=== PATIENT | male | born 1935 | race Caucasian/White ===

== ENCOUNTER 2022-06-12 12:42 | Inpatient (IN) ==
[2022-06-12] MEDS ORDERED: methylPREDNISolone SOD SUC 125 MG/2 ML VIAL IV STA (15:57)
[2022-06-12] MEDS ORDERED: ALBUTEROL/IPRATROPIUM 3 ML NEB RESP TX STA (15:57)
[2022-06-12 16:05] LABS: Basophils % 0.4 % (0.0-0.8); Eosinophils # 0.2 10*3/uL (0.0-0.87); Eosinophils % 1.9 % (0.00-10.9); Hematocrit 43.3 VOL% (42.0-52.0); Hemoglobin 13.9 GM/DL (14.0-18.0); Immature Granulocytes % 0.5 %; Immature Granulocytes Absolute 0.05 #; Lymphocytes # 2.1 10*3/uL (1.4-4.0); Lymphocytes % 20.9 % (21.2-54.2); Mean Corpuscular HGB Conc 32.1 GM/DL (32-36); Mean Corpuscular Volume 89.1 FL (87-102); Mean Platelet Volume 10.9 FL (9.6-12.0); Monocytes # 0.9 10*3/uL (0.11-0.8); Monocytes % 8.9 % (1.7-12.7); Neutrophils % 67.4 % (38.7-73.9); Platelet Count 287 T/CUMM (130-400); Red Blood Count 4.86 MC/CUMM (3.8-5.5)
[2022-06-12 16:21] LABS: Albumin 3.9 G/DL (3.4-5.0); Bilirubin,Total 0.4 MG/DL (0.20-1.00); Calcium 9.1 MG/DL (8.5-10.1); Osmolality,Calculated 272.1 MOS/KG (273-304); Potassium 4.8 MMOL/L (3.5-5.1); Total Protein 7.1 G/DL (6.4-8.2)
[2022-06-12] MEDS ORDERED: cefTRIAXone 1,000 MG in SODIUM CHLORIDE 0.9% 100 ML IV STA (16:36)
[2022-06-12] MEDS ORDERED: GLUCAGON 1 MG VIAL IM PRN (17:09)
[2022-06-12] MEDS ORDERED: ACETAMINOPHEN 325 MG TABLET PO PRN (17:09)
[2022-06-12] MEDS ORDERED: NICOTINE 21 MG/24 HR PATCH TRANSDERM PRN (17:09)
[2022-06-12] MEDS ORDERED: guaiFENesin/DM ER 600-30 MG TABLET PO PRN (17:09)
[2022-06-12] MEDS ORDERED: DOCUSATE SODIUM 100 MG CAPSULE PO PRN (17:09)
[2022-06-12] MEDS ORDERED: ONDANSETRON 4 MG/2 ML VIAL IV PRN (17:09)
[2022-06-12] MEDS ORDERED: DEXTROSE 10% 250 ML BAG IV PRN (17:43)
[2022-06-12] MEDS: AZITHROMYCIN INJ 500 MG in SODIUM CHLORIDE 0.9% 250 ML IV SCH (18:45)
[2022-06-12] MEDS: ALBUTEROL/IPRATROPIUM 3 ML NEB RESP TX SCH ×2 (19:46→23:32)
[2022-06-12] MEDS: hydrALAZINE 20 MG/1 ML VIAL IV PRN (20:38)
[2022-06-12] MEDS: ENOXAPARIN 40 MG/0.4 ML SYRINGE SUBCUT SCH (21:05)
[2022-06-12] MEDS: PRIMIDONE 50 MG TABLET PO SCH (21:05)
[2022-06-12] MEDS: metFORMIN 500 MG TABLET PO SCH (21:05)
[2022-06-12] MEDS: INSULIN LISPRO 100 UNIT/ML SUBCUT SCH (21:07)
[2022-06-12] MEDS: BUDESONIDE/FORMOTEROL 160-4.5 INHALER 6 GM INH SCH (21:59)
[2022-06-12] MEDS: methylPREDNISolone SOD SUC 40 MG/1 ML VIAL IV SCH (23:12)
[2022-06-13] MEDS: methylPREDNISolone SOD SUC 40 MG/1 ML VIAL IV SCH ×4 (04:25→22:19)
[2022-06-13 05:30] LABS: Hematocrit 40.2 VOL% (42.0-52.0); Immature Granulocytes % 0.6 %; Immature Granulocytes Absolute 0.05 #; Lymphocytes # 0.8 10*3/uL (1.4-4.0); Lymphocytes % 9.5 % (21.2-54.2); Mean Corpuscular HGB Conc 32.3 GM/DL (32-36); Mean Corpuscular Volume 88.9 FL (87-102); Mean Platelet Volume 11.1 FL (9.6-12.0); Monocytes # 0.1 10*3/uL (0.11-0.8); Monocytes % 1.4 % (1.7-12.7); Neutrophils % 88.5 % (38.7-73.9); Platelet Count 262 T/CUMM (130-400); Red Blood Count 4.52 MC/CUMM (3.8-5.5); White Blood Count 8.7 T/CUMM (4-12)
[2022-06-13] MEDS: hydrALAZINE 20 MG/1 ML VIAL IV PRN (05:44)
[2022-06-13 05:59] LABS: Calcium 8.9 MG/DL (8.5-10.1); Osmolality,Calculated 275.1 MOS/KG (273-304); Potassium 4.4 MMOL/L (3.5-5.1); Risk Ratio 2.47; Thyroid Stimulating Hormone 0.46 uIU/ml (0.358-3.74); VLDL Cholesterol 15.2 MG/DL
[2022-06-13] MEDS: ALBUTEROL/IPRATROPIUM 3 ML NEB RESP TX SCH ×3 (07:25→19:36)
[2022-06-13] MEDS: NON-FORMULARY MEDICATION (Ferrous Sulfate 27 mg iron Tablet) PO SCH (08:39)
[2022-06-13] MEDS: metFORMIN 500 MG TABLET PO SCH ×2 (08:52→21:51)
[2022-06-13] MEDS: ASPIRIN EC 81 MG TABLET PO SCH (08:52)
[2022-06-13] MEDS: MULTIVITAMIN (CENTRUM) TABLET PO SCH (08:52)
[2022-06-13] MEDS: LOSARTAN 50 MG TABLET PO SCH (08:52)
[2022-06-13] MEDS: CHOLECALCIFEROL 1,000 UNIT TABLET PO SCH (08:53)
[2022-06-13] MEDS: PRIMIDONE 50 MG TABLET PO SCH ×3 (08:53→21:51)
[2022-06-13] MEDS: CYANOCOBALAMIN 500 MCG TABLET PO SCH (08:53)
[2022-06-13] MEDS: ATORVASTATIN 80 MG TABLET PO SCH (08:53)
[2022-06-13] MEDS: PANTOPRAZOLE 40 MG TABLET PO SCH (08:53)
[2022-06-13] MEDS: FUROSEMIDE 40 MG TABLET PO SCH (08:53)
[2022-06-13] MEDS: cefTRIAXone 1,000 MG in SODIUM CHLORIDE 0.9% 100 ML IV SCH (08:54)
[2022-06-13] MEDS: BUDESONIDE/FORMOTEROL 160-4.5 INHALER 6 GM INH SCH ×2 (08:54→21:51)
[2022-06-13] MEDS: INSULIN LISPRO 100 UNIT/ML SUBCUT SCH ×4 (08:54→21:50)
[2022-06-13] MEDS ORDERED: GLUCAGON 1 MG VIAL IM PRN (16:43)
[2022-06-13] MEDS ORDERED: DEXTROSE 50% 25 GM/50 ML VIAL IV PRN (16:43)
[2022-06-13] MEDS: AZITHROMYCIN INJ 500 MG in SODIUM CHLORIDE 0.9% 250 ML IV SCH (18:39)
[2022-06-13] MEDS: ENOXAPARIN 40 MG/0.4 ML SYRINGE SUBCUT SCH (21:50)
[2022-06-14] MEDS: ALBUTEROL/IPRATROPIUM 3 ML NEB RESP TX SCH ×4 (02:01→19:46)
[2022-06-14 05:30] LABS: Basophils % 0.1 % (0.0-0.8); Hematocrit 38.9 VOL% (42.0-52.0); Hemoglobin 12.4 GM/DL (14.0-18.0); Immature Granulocytes % 0.6 %; Immature Granulocytes Absolute 0.11 #; Lymphocytes # 0.8 10*3/uL (1.4-4.0); Lymphocytes % 4.8 % (21.2-54.2); Mean Corpuscular HGB Conc 31.9 GM/DL (32-36); Mean Corpuscular Volume 88.8 FL (87-102); Mean Platelet Volume 11.3 FL (9.6-12.0); Monocytes # 0.7 10*3/uL (0.11-0.8); Monocytes % 3.8 % (1.7-12.7); Neutrophils % 90.7 % (38.7-73.9); Platelet Count 280 T/CUMM (130-400); Red Blood Count 4.38 MC/CUMM (3.8-5.5); Red Cell Distribution Width 14.4 % (9.3-17.3); White Blood Count 17.2 T/CUMM (4-12)
[2022-06-14 05:45] LABS: PT Patient Result 11.2 SECS (10.1-12.1)
[2022-06-14 06:01] LABS: Band Neutrophils 1 % (0-10); Lymphocytes 5 % (20-55); Platelet Estimate Adequate; Total Cells Counted 100
[2022-06-14] MEDS: hydrALAZINE 20 MG/1 ML VIAL IV PRN (06:02)
[2022-06-14 06:03] LABS: Calcium 9.1 MG/DL (8.5-10.1); Potassium 4.1 MMOL/L (3.5-5.1)
[2022-06-14] MEDS: methylPREDNISolone SOD SUC 40 MG/1 ML VIAL IV SCH ×2 (06:04→18:11)
[2022-06-14] MEDS: cefTRIAXone 1,000 MG in SODIUM CHLORIDE 0.9% 100 ML IV SCH (09:39)
[2022-06-14] MEDS: metFORMIN 500 MG TABLET PO SCH ×2 (09:40→20:12)
[2022-06-14] MEDS: PANTOPRAZOLE 40 MG TABLET PO SCH (09:40)
[2022-06-14] MEDS: CYANOCOBALAMIN 500 MCG TABLET PO SCH (09:40)
[2022-06-14] MEDS: LOSARTAN 50 MG TABLET PO SCH (09:40)
[2022-06-14] MEDS: ATORVASTATIN 80 MG TABLET PO SCH (09:41)
[2022-06-14] MEDS: CHOLECALCIFEROL 1,000 UNIT TABLET PO SCH (09:41)
[2022-06-14] MEDS: MULTIVITAMIN (CENTRUM) TABLET PO SCH (09:41)
[2022-06-14] MEDS: PRIMIDONE 50 MG TABLET PO SCH ×3 (09:41→20:12)
[2022-06-14] MEDS: FUROSEMIDE 40 MG TABLET PO SCH (09:42)
[2022-06-14] MEDS: INSULIN LISPRO 100 UNIT/ML SUBCUT SCH ×4 (09:42→20:50)
[2022-06-14] MEDS: BUDESONIDE/FORMOTEROL 160-4.5 INHALER 6 GM INH SCH ×2 (09:43→20:18)
[2022-06-14] MEDS: NON-FORMULARY MEDICATION (Ferrous Sulfate 27 mg iron Tablet) PO SCH (09:54)
[2022-06-14] MEDS: AZITHROMYCIN INJ 500 MG in SODIUM CHLORIDE 0.9% 250 ML IV SCH (18:11)
[2022-06-14] MEDS: ENOXAPARIN 40 MG/0.4 ML SYRINGE SUBCUT SCH (20:13)
[2022-06-14] MEDS: ZALEPLON 5 MG CAPSULE PO PRN (22:25)
[2022-06-15] MEDS: ALBUTEROL/IPRATROPIUM 3 ML NEB RESP TX SCH ×4 (00:55→19:26)
[2022-06-15 05:30] LABS: Basophils % 0.1 % (0.0-0.8); Hematocrit 39.3 VOL% (42.0-52.0); Hemoglobin 12.6 GM/DL (14.0-18.0); Immature Granulocytes % 0.5 %; Immature Granulocytes Absolute 0.08 #; Lymphocytes # 1.3 10*3/uL (1.4-4.0); Mean Corpuscular HGB Conc 32.1 GM/DL (32-36); Mean Corpuscular Volume 89.3 FL (87-102); Mean Platelet Volume 11.1 FL (9.6-12.0); Monocytes # 0.9 10*3/uL (0.11-0.8); Monocytes % 6.3 % (1.7-12.7); Neutrophils % 84.1 % (38.7-73.9); Platelet Count 256 T/CUMM (130-400); Red Cell Distribution Width 14.6 % (9.3-17.3); White Blood Count 14.8 T/CUMM (4-12)
[2022-06-15 05:51] LABS: Calcium 8.8 MG/DL (8.5-10.1); Osmolality,Calculated 276.8 MOS/KG (273-304); Potassium 4.4 MMOL/L (3.5-5.1)
[2022-06-15] MEDS: methylPREDNISolone SOD SUC 40 MG/1 ML VIAL IV SCH ×2 (05:52→18:59)
[2022-06-15] MEDS: INSULIN LISPRO 100 UNIT/ML SUBCUT SCH ×4 (08:27→21:12)
[2022-06-15] MEDS: cefTRIAXone 1,000 MG in SODIUM CHLORIDE 0.9% 100 ML IV SCH (08:55)
[2022-06-15] MEDS: BUDESONIDE/FORMOTEROL 160-4.5 INHALER 6 GM INH SCH ×2 (08:55→21:12)
[2022-06-15] MEDS: MULTIVITAMIN (CENTRUM) TABLET PO SCH (08:56)
[2022-06-15] MEDS: PRIMIDONE 50 MG TABLET PO SCH ×3 (08:57→21:12)
[2022-06-15] MEDS: FUROSEMIDE 40 MG TABLET PO SCH (08:57)
[2022-06-15] MEDS: metFORMIN 500 MG TABLET PO SCH (08:57)
[2022-06-15] MEDS: PANTOPRAZOLE 40 MG TABLET PO SCH (08:57)
[2022-06-15] MEDS: ATORVASTATIN 80 MG TABLET PO SCH (08:57)
[2022-06-15] MEDS: LOSARTAN 50 MG TABLET PO SCH (08:57)
[2022-06-15] MEDS: CYANOCOBALAMIN 500 MCG TABLET PO SCH (08:58)
[2022-06-15] MEDS: CHOLECALCIFEROL 1,000 UNIT TABLET PO SCH (08:58)
[2022-06-15] MEDS: NON-FORMULARY MEDICATION (Ferrous Sulfate 27 mg iron Tablet) PO SCH (09:00)
[2022-06-15] MEDS ORDERED: DIAZEPAM 5 MG TABLET PO ONE (09:31)
[2022-06-15] MEDS: AZITHROMYCIN INJ 500 MG in SODIUM CHLORIDE 0.9% 250 ML IV SCH (18:59)
[2022-06-15] MEDS: ENOXAPARIN 40 MG/0.4 ML SYRINGE SUBCUT SCH (21:12)
[2022-06-16] MEDS: ALBUTEROL/IPRATROPIUM 3 ML NEB RESP TX SCH ×4 (00:33→19:40)
[2022-06-16 04:59] LABS: Basophils % 0.1 % (0.0-0.8); Eosinophils % 0.1 % (0.00-10.9); Hematocrit 40.5 VOL% (42.0-52.0); Hemoglobin 12.8 GM/DL (14.0-18.0); Immature Granulocytes % 0.5 %; Immature Granulocytes Absolute 0.07 #; Lymphocytes # 1.3 10*3/uL (1.4-4.0); Lymphocytes % 9.8 % (21.2-54.2); Mean Corpuscular HGB Conc 31.6 GM/DL (32-36); Mean Corpuscular Volume 90.4 FL (87-102); Mean Platelet Volume 11.2 FL (9.6-12.0); Monocytes # 1.1 10*3/uL (0.11-0.8); Monocytes % 8.2 % (1.7-12.7); Neutrophils % 81.3 % (38.7-73.9); Platelet Count 243 T/CUMM (130-400); Red Blood Count 4.48 MC/CUMM (3.8-5.5); Red Cell Distribution Width 14.5 % (9.3-17.3); White Blood Count 13.7 T/CUMM (4-12)
[2022-06-16 05:27] LABS: Calcium 8.8 MG/DL (8.5-10.1); Osmolality,Calculated 271.1 MOS/KG (273-304); Potassium 4.8 MMOL/L (3.5-5.1)
[2022-06-16] MEDS: methylPREDNISolone SOD SUC 40 MG/1 ML VIAL IV SCH ×2 (06:29→17:47)
[2022-06-16] MEDS: INSULIN LISPRO 100 UNIT/ML SUBCUT SCH ×4 (08:16→21:17)
[2022-06-16] MEDS: MULTIVITAMIN (CENTRUM) TABLET PO SCH (09:48)
[2022-06-16] MEDS: CYANOCOBALAMIN 500 MCG TABLET PO SCH (09:48)
[2022-06-16] MEDS: CHOLECALCIFEROL 1,000 UNIT TABLET PO SCH (09:48)
[2022-06-16] MEDS: LOSARTAN 50 MG TABLET PO SCH (09:48)
[2022-06-16] MEDS: ATORVASTATIN 80 MG TABLET PO SCH (09:48)
[2022-06-16] MEDS: FUROSEMIDE 40 MG TABLET PO SCH (09:49)
[2022-06-16] MEDS: PANTOPRAZOLE 40 MG TABLET PO SCH (09:49)
[2022-06-16] MEDS: cefTRIAXone 1,000 MG in SODIUM CHLORIDE 0.9% 100 ML IV SCH (09:49)
[2022-06-16] MEDS: PRIMIDONE 50 MG TABLET PO SCH ×3 (09:49→21:17)
[2022-06-16] MEDS: NON-FORMULARY MEDICATION (Ferrous Sulfate 27 mg iron Tablet) PO SCH (09:50)
[2022-06-16] MEDS: ASPIRIN EC 81 MG TABLET PO SCH (09:50)
[2022-06-16] MEDS: BUDESONIDE/FORMOTEROL 160-4.5 INHALER 6 GM INH SCH ×2 (09:51→21:17)
[2022-06-16] MEDS: AZITHROMYCIN INJ 500 MG in SODIUM CHLORIDE 0.9% 250 ML IV SCH (17:46)
[2022-06-16] MEDS ORDERED: ALUMINUM/MAGNES/SIMETH MAX STR 30 ML UDCUP PO PRN (20:06)
[2022-06-16 20:11] LABS: Lymphocytes,Pleural Fluid 65 %; Monocytes,Pleural Fluid 18 %; Neutrophils,Pleural Fluid 17 %
[2022-06-16 20:12] LABS: RBC,Pleural Fluid 774 T/CUMM
[2022-06-16 20:22] LABS: Glucose,Pleural Fluid 99 MG/DL; Total Protein,Body Fluid 4.3 G/DL
[2022-06-16] MEDS: ENOXAPARIN 40 MG/0.4 ML SYRINGE SUBCUT SCH (21:17)
[2022-06-16] MEDS: ZALEPLON 5 MG CAPSULE PO PRN (22:25)
[2022-06-17] MEDS: ALBUTEROL/IPRATROPIUM 3 ML NEB RESP TX SCH ×4 (00:18→19:20)
[2022-06-17 06:01] LABS: Basophils % 0.1 % (0.0-0.8); Eosinophils # 0.3 10*3/uL (0.0-0.87); Eosinophils % 2.1 % (0.00-10.9); Hematocrit 41.1 VOL% (42.0-52.0); Hemoglobin 13.2 GM/DL (14.0-18.0); Immature Granulocytes % 0.6 %; Immature Granulocytes Absolute 0.07 #; Lymphocytes # 1.7 10*3/uL (1.4-4.0); Lymphocytes % 13.8 % (21.2-54.2); Mean Corpuscular HGB Conc 32.1 GM/DL (32-36); Mean Corpuscular Volume 89.5 FL (87-102); Mean Platelet Volume 11.2 FL (9.6-12.0); Monocytes # 1.2 10*3/uL (0.11-0.8); Monocytes % 10.2 % (1.7-12.7); Neutrophils % 73.2 % (38.7-73.9); Platelet Count 225 T/CUMM (130-400); Red Blood Count 4.59 MC/CUMM (3.8-5.5); Red Cell Distribution Width 14.2 % (9.3-17.3); White Blood Count 12.2 T/CUMM (4-12)
[2022-06-17] MEDS: methylPREDNISolone SOD SUC 40 MG/1 ML VIAL IV SCH (06:16)
[2022-06-17 06:25] LABS: Calcium 8.7 MG/DL (8.5-10.1); Osmolality,Calculated 274.8 MOS/KG (273-304); Potassium 3.8 MMOL/L (3.5-5.1)
[2022-06-17] MEDS: INSULIN LISPRO 100 UNIT/ML SUBCUT SCH ×4 (08:39→20:25)
[2022-06-17] MEDS: BUDESONIDE/FORMOTEROL 160-4.5 INHALER 6 GM INH SCH ×2 (08:42→21:09)
[2022-06-17] MEDS: CHOLECALCIFEROL 1,000 UNIT TABLET PO SCH (08:43)
[2022-06-17] MEDS: FUROSEMIDE 40 MG TABLET PO SCH (08:43)
[2022-06-17] MEDS: PRIMIDONE 50 MG TABLET PO SCH ×3 (08:43→21:09)
[2022-06-17] MEDS: ASPIRIN EC 81 MG TABLET PO SCH (08:43)
[2022-06-17] MEDS: LOSARTAN 50 MG TABLET PO SCH (08:43)
[2022-06-17] MEDS: CYANOCOBALAMIN 500 MCG TABLET PO SCH (08:44)
[2022-06-17] MEDS: MULTIVITAMIN (CENTRUM) TABLET PO SCH (08:44)
[2022-06-17] MEDS: cefTRIAXone 1,000 MG in SODIUM CHLORIDE 0.9% 100 ML IV SCH (08:44)
[2022-06-17] MEDS: PANTOPRAZOLE 40 MG TABLET PO SCH (08:44)
[2022-06-17] MEDS: ATORVASTATIN 80 MG TABLET PO SCH (08:44)
[2022-06-17] MEDS: NON-FORMULARY MEDICATION (Ferrous Sulfate 27 mg iron Tablet) PO SCH (08:51)
[2022-06-17] MEDS: metFORMIN 500 MG TABLET PO SCH ×2 (10:11→21:08)
[2022-06-17] MEDS: AZITHROMYCIN INJ 500 MG in SODIUM CHLORIDE 0.9% 250 ML IV SCH (17:25)
[2022-06-17] MEDS: ZALEPLON 5 MG CAPSULE PO PRN (21:08)
[2022-06-17] MEDS: ENOXAPARIN 40 MG/0.4 ML SYRINGE SUBCUT SCH (21:09)
[2022-06-18] MEDS: ALBUTEROL/IPRATROPIUM 3 ML NEB RESP TX SCH ×4 (00:15→19:24)
[2022-06-18 05:00] LABS: Basophils % 0.1 % (0.0-0.8); Eosinophils # 0.5 10*3/uL (0.0-0.87); Hematocrit 39.8 VOL% (42.0-52.0); Hemoglobin 12.8 GM/DL (14.0-18.0); Immature Granulocytes Absolute 0.11 #; Lymphocytes # 1.8 10*3/uL (1.4-4.0); Lymphocytes % 16.6 % (21.2-54.2); Mean Corpuscular HGB Conc 32.2 GM/DL (32-36); Mean Corpuscular Volume 89.4 FL (87-102); Mean Platelet Volume 11.4 FL (9.6-12.0); Monocytes % 9.2 % (1.7-12.7); Neutrophils % 68.1 % (38.7-73.9); Platelet Count 222 T/CUMM (130-400); Red Blood Count 4.45 MC/CUMM (3.8-5.5); Red Cell Distribution Width 13.9 % (9.3-17.3); White Blood Count 10.7 T/CUMM (4-12)
[2022-06-18 05:30] LABS: Calcium 8.7 MG/DL (8.5-10.1); Osmolality,Calculated 278.5 MOS/KG (273-304); Potassium 3.8 MMOL/L (3.5-5.1)
[2022-06-18] MEDS: INSULIN LISPRO 100 UNIT/ML SUBCUT SCH ×4 (09:26→20:50)
[2022-06-18] MEDS: cefTRIAXone 1,000 MG in SODIUM CHLORIDE 0.9% 100 ML IV SCH (09:26)
[2022-06-18] MEDS: CYANOCOBALAMIN 500 MCG TABLET PO SCH (09:27)
[2022-06-18] MEDS: MULTIVITAMIN (CENTRUM) TABLET PO SCH (09:27)
[2022-06-18] MEDS: PRIMIDONE 50 MG TABLET PO SCH ×3 (09:27→20:50)
[2022-06-18] MEDS: FUROSEMIDE 40 MG TABLET PO SCH (09:27)
[2022-06-18] MEDS: ASPIRIN EC 81 MG TABLET PO SCH (09:27)
[2022-06-18] MEDS: LOSARTAN 50 MG TABLET PO SCH (09:27)
[2022-06-18] MEDS: ATORVASTATIN 80 MG TABLET PO SCH (09:27)
[2022-06-18] MEDS: metFORMIN 500 MG TABLET PO SCH ×2 (09:28→20:29)
[2022-06-18] MEDS: PANTOPRAZOLE 40 MG TABLET PO SCH (09:28)
[2022-06-18] MEDS: CHOLECALCIFEROL 1,000 UNIT TABLET PO SCH (09:28)
[2022-06-18] MEDS: NON-FORMULARY MEDICATION (Ferrous Sulfate 27 mg iron Tablet) PO SCH (09:30)
[2022-06-18] MEDS: BUDESONIDE/FORMOTEROL 160-4.5 INHALER 6 GM INH SCH ×2 (09:34→20:50)
[2022-06-18 11:41] LABS: Specimen Source NASAL
[2022-06-18] MEDS: AZITHROMYCIN INJ 500 MG in SODIUM CHLORIDE 0.9% 250 ML IV SCH (17:48)
[2022-06-18] MEDS: ZALEPLON 5 MG CAPSULE PO PRN (20:49)
[2022-06-18] MEDS: ENOXAPARIN 40 MG/0.4 ML SYRINGE SUBCUT SCH (20:50)
[2022-06-19] MEDS: ALBUTEROL/IPRATROPIUM 3 ML NEB RESP TX SCH ×2 (00:10→07:28)
[2022-06-19] MEDS: INSULIN LISPRO 100 UNIT/ML SUBCUT SCH ×2 (07:37→11:30)
[2022-06-19] MEDS: ASPIRIN EC 81 MG TABLET PO SCH (08:51)
[2022-06-19] MEDS: MULTIVITAMIN (CENTRUM) TABLET PO SCH (08:51)
[2022-06-19] MEDS: ATORVASTATIN 80 MG TABLET PO SCH (08:51)
[2022-06-19] MEDS: PANTOPRAZOLE 40 MG TABLET PO SCH (08:52)
[2022-06-19] MEDS: CHOLECALCIFEROL 1,000 UNIT TABLET PO SCH (08:52)
[2022-06-19] MEDS: PRIMIDONE 50 MG TABLET PO SCH (08:52)
[2022-06-19] MEDS: LOSARTAN 50 MG TABLET PO SCH (08:52)
[2022-06-19] MEDS: CYANOCOBALAMIN 500 MCG TABLET PO SCH (08:52)
[2022-06-19] MEDS: FUROSEMIDE 40 MG TABLET PO SCH (08:52)
[2022-06-19] MEDS: cefTRIAXone 1,000 MG in SODIUM CHLORIDE 0.9% 100 ML IV SCH (08:53)
[2022-06-19] MEDS: BUDESONIDE/FORMOTEROL 160-4.5 INHALER 6 GM INH SCH (08:53)
[2022-06-19] MEDS: NON-FORMULARY MEDICATION (Ferrous Sulfate 27 mg iron Tablet) PO SCH (08:53)
[2022-06-19] MEDS: metFORMIN 500 MG TABLET PO SCH (08:54)
[2022-06-19 12:01] VITALS: BP 127/53
== END 2022-06-19 14:20 | disposition home or self-care (01) | DRG 180 ==
LOC: N.ED 12:42 → N.EDINP 17:09 → SUATTDRO 17:09 → N.TELEN 20:05
PROVIDERS: ADMIT Internal Medicine; ATTEND Family Medicine
PROC: IRGDHTC (2022-06-15 08:05)

== ENCOUNTER 2022-07-01 21:38 | Inpatient (IN) ==
[2022-07-01] MEDS ORDERED: FUROSEMIDE 40 MG/4 ML VIAL IV STA (22:05)
[2022-07-01 22:28] LABS: Basophils # 0.1 10*3/uL (0.0-0.2); Basophils % 0.4 % (0.0-0.8); Eosinophils # 0.5 10*3/uL (0.0-0.87); Eosinophils % 3.9 % (0.00-10.9); Hematocrit 38.2 VOL% (42.0-52.0); Hemoglobin 12.2 GM/DL (14.0-18.0); Immature Granulocytes % 0.5 %; Immature Granulocytes Absolute 0.06 #; Lymphocytes # 1.7 10*3/uL (1.4-4.0); Lymphocytes % 14.9 % (21.2-54.2); Mean Corpuscular HGB Conc 31.9 GM/DL (32-36); Mean Platelet Volume 10.6 FL (9.6-12.0); Monocytes # 0.9 10*3/uL (0.11-0.8); Monocytes % 7.6 % (1.7-12.7); Neutrophils % 72.7 % (38.7-73.9); Platelet Count 314 T/CUMM (130-400); Red Blood Count 4.29 MC/CUMM (3.8-5.5); Red Cell Distribution Width 14.3 % (9.3-17.3); White Blood Count 11.4 T/CUMM (4-12)
[2022-07-01 22:57] LABS: Alanine Aminotransferase 33 U/L (16-61); Albumin 3.4 G/DL (3.4-5.0); Alkaline Phosphatase 119 U/L (45-117); Aspartate Amino Transferase 20 U/L (0-37); Bilirubin,Total < 0.39 MG/DL (0.20-1.00); Blood Urea Nitrogen 13 MG/DL (7-18); Calcium 8.6 MG/DL (8.5-10.1); Carbon Dioxide 26 MMOL/L (21-32); Chloride 107 MMOL/L (98-107); Glucose 129 MG/DL (74-106); Osmolality,Calculated 278.5 MOS/KG (273-304); Potassium 4.6 MMOL/L (3.5-5.1); Sodium 139 MMOL/L (136-145); Total Protein 6.3 G/DL (6.4-8.2)
[2022-07-01] MEDS ORDERED: PIPERACILLIN/TAZOBACTAM 3,375 MG in SODIUM CHLORIDE 0.9% 100 ML IV STA (23:45)
[2022-07-01] MEDS ORDERED: DOCUSATE SODIUM 100 MG CAPSULE PO PRN (23:51)
[2022-07-01] MEDS ORDERED: MORPHINE 2 MG/1 ML SYRINGE IV PRN (23:51)
[2022-07-01] MEDS ORDERED: hydrALAZINE 20 MG/1 ML VIAL IV PRN (23:51)
[2022-07-01] MEDS ORDERED: NICOTINE 21 MG/24 HR PATCH TRANSDERM PRN (23:51)
[2022-07-01] MEDS ORDERED: guaiFENesin/DM ER 600-30 MG TABLET PO PRN (23:51)
[2022-07-01] MEDS ORDERED: ONDANSETRON 4 MG/2 ML VIAL IV PRN (23:51)
[2022-07-01] MEDS ORDERED: diphenhydrAMINE CAP 25 MG CAPSULE PO PRN (23:51)
[2022-07-01] MEDS ORDERED: ACETAMINOPHEN 325 MG TABLET PO PRN (23:51)
[2022-07-02 06:15] LABS: Basophils # 0.1 10*3/uL (0.0-0.2); Basophils % 0.6 % (0.0-0.8); Eosinophils # 0.3 10*3/uL (0.0-0.87); Eosinophils % 3.6 % (0.00-10.9); Hematocrit 37.5 VOL% (42.0-52.0); Hemoglobin 11.9 GM/DL (14.0-18.0); Immature Granulocytes % 0.4 %; Immature Granulocytes Absolute 0.04 #; Lymphocytes # 1.4 10*3/uL (1.4-4.0); Lymphocytes % 14.9 % (21.2-54.2); Mean Corpuscular HGB Conc 31.7 GM/DL (32-36); Mean Corpuscular Volume 90.1 FL (87-102); Mean Platelet Volume 10.6 FL (9.6-12.0); Monocytes # 0.8 10*3/uL (0.11-0.8); Monocytes % 8.8 % (1.7-12.7); Neutrophils % 71.7 % (38.7-73.9); Platelet Count 278 T/CUMM (130-400); Red Blood Count 4.16 MC/CUMM (3.8-5.5); Red Cell Distribution Width 14.3 % (9.3-17.3); White Blood Count 9.4 T/CUMM (4-12)
[2022-07-02 06:33] LABS: Calcium 8.9 MG/DL (8.5-10.1); Osmolality,Calculated 279.4 MOS/KG (273-304); Potassium 4.9 MMOL/L (3.5-5.1)
[2022-07-02] MEDS: ALBUTEROL/IPRATROPIUM 3 ML NEB RESP TX SCH ×3 (07:13→18:56)
[2022-07-02] MEDS: INSULIN LISPRO 100 UNIT/ML SUBCUT SCH ×4 (08:13→21:20)
[2022-07-02] MEDS: PANTOPRAZOLE 40 MG TABLET PO SCH (09:03)
[2022-07-02] MEDS: PIPERACILLIN/TAZOBACTAM 3,375 MG in SODIUM CHLORIDE 0.9% 100 ML IV SCH ×3 (09:03→23:35)
[2022-07-02] MEDS ORDERED: GLUCAGON 1 MG VIAL IM PRN (11:11)
[2022-07-02] MEDS ORDERED: DEXTROSE 10% 250 ML BAG IV PRN (11:11)
[2022-07-02] MEDS ORDERED: IPRATROPIUM 500 MCG/2.5 ML NEB RESP TX SCH (13:00)
[2022-07-02] MEDS: ZALEPLON 5 MG CAPSULE PO PRN (21:19)
[2022-07-02] MEDS: BUDESONIDE/FORMOTEROL 160-4.5 INHALER 6 GM INH SCH (21:20)
[2022-07-03] MEDS: ALBUTEROL/IPRATROPIUM 3 ML NEB RESP TX SCH ×5 (00:23→23:04)
[2022-07-03] MEDS: PANTOPRAZOLE 40 MG TABLET PO SCH (08:51)
[2022-07-03] MEDS: ATORVASTATIN 80 MG TABLET PO SCH (08:51)
[2022-07-03] MEDS: PIPERACILLIN/TAZOBACTAM 3,375 MG in SODIUM CHLORIDE 0.9% 100 ML IV SCH ×2 (08:51→15:26)
[2022-07-03] MEDS: CHOLECALCIFEROL 1,000 UNIT TABLET PO SCH (08:51)
[2022-07-03] MEDS: LOSARTAN 50 MG TABLET PO SCH (08:51)
[2022-07-03] MEDS: INSULIN LISPRO 100 UNIT/ML SUBCUT SCH ×4 (09:13→20:04)
[2022-07-03] MEDS: BUDESONIDE/FORMOTEROL 160-4.5 INHALER 6 GM INH SCH ×2 (10:02→20:11)
[2022-07-03] MEDS: ZALEPLON 5 MG CAPSULE PO PRN (20:09)
[2022-07-04] MEDS: PIPERACILLIN/TAZOBACTAM 3,375 MG in SODIUM CHLORIDE 0.9% 100 ML IV SCH ×3 (00:33→15:31)
[2022-07-04] MEDS: ALBUTEROL/IPRATROPIUM 3 ML NEB RESP TX SCH ×4 (01:01→20:12)
[2022-07-04 05:17] LABS: Basophils # 0.1 10*3/uL (0.0-0.2); Basophils % 0.7 % (0.0-0.8); Eosinophils # 0.4 10*3/uL (0.0-0.87); Hematocrit 34.7 VOL% (42.0-52.0); Hemoglobin 10.8 GM/DL (14.0-18.0); Immature Granulocytes % 0.4 %; Immature Granulocytes Absolute 0.03 #; Lymphocytes % 14.2 % (21.2-54.2); Mean Corpuscular HGB Conc 31.1 GM/DL (32-36); Mean Corpuscular Volume 90.1 FL (87-102); Mean Platelet Volume 10.6 FL (9.6-12.0); Monocytes # 0.7 10*3/uL (0.11-0.8); Monocytes % 9.5 % (1.7-12.7); Neutrophils % 70.2 % (38.7-73.9); Platelet Count 254 T/CUMM (130-400); Red Blood Count 3.85 MC/CUMM (3.8-5.5); Red Cell Distribution Width 14.5 % (9.3-17.3); White Blood Count 7.3 T/CUMM (4-12)
[2022-07-04 05:27] LABS: PT Patient Result 10.9 SECS (10.1-12.1)
[2022-07-04 05:35] LABS: Calcium 8.4 MG/DL (8.5-10.1); Osmolality,Calculated 276.5 MOS/KG (273-304); Potassium 3.7 MMOL/L (3.5-5.1)
[2022-07-04] MEDS: INSULIN LISPRO 100 UNIT/ML SUBCUT SCH ×4 (08:05→21:27)
[2022-07-04] MEDS: LOSARTAN 50 MG TABLET PO SCH (08:10)
[2022-07-04] MEDS: ATORVASTATIN 80 MG TABLET PO SCH (08:10)
[2022-07-04] MEDS: CHOLECALCIFEROL 1,000 UNIT TABLET PO SCH (08:10)
[2022-07-04] MEDS: PANTOPRAZOLE 40 MG TABLET PO SCH (08:10)
[2022-07-04] MEDS: BUDESONIDE/FORMOTEROL 160-4.5 INHALER 6 GM INH SCH ×2 (09:15→23:16)
[2022-07-05] MEDS: ALBUTEROL/IPRATROPIUM 3 ML NEB RESP TX SCH ×5 (00:21→22:10)
[2022-07-05] MEDS: PIPERACILLIN/TAZOBACTAM 3,375 MG in SODIUM CHLORIDE 0.9% 100 ML IV SCH ×3 (00:42→17:26)
[2022-07-05 06:15] LABS: Basophils # 0.1 10*3/uL (0.0-0.2); Basophils % 0.6 % (0.0-0.8); Eosinophils # 0.4 10*3/uL (0.0-0.87); Eosinophils % 5.5 % (0.00-10.9); Hematocrit 36.3 VOL% (42.0-52.0); Hemoglobin 11.2 GM/DL (14.0-18.0); Immature Granulocytes % 0.5 %; Immature Granulocytes Absolute 0.04 #; Mean Corpuscular HGB Conc 30.9 GM/DL (32-36); Mean Corpuscular Volume 90.5 FL (87-102); Mean Platelet Volume 10.8 FL (9.6-12.0); Monocytes # 0.8 10*3/uL (0.11-0.8); Monocytes % 9.8 % (1.7-12.7); Neutrophils % 71.6 % (38.7-73.9); Platelet Count 266 T/CUMM (130-400); Red Blood Count 4.01 MC/CUMM (3.8-5.5); Red Cell Distribution Width 14.5 % (9.3-17.3)
[2022-07-05 06:36] LABS: Albumin 2.8 G/DL (3.4-5.0); Bilirubin,Total 0.5 MG/DL (0.20-1.00); Calcium 8.6 MG/DL (8.5-10.1); Osmolality,Calculated 278.4 MOS/KG (273-304); Potassium 4.1 MMOL/L (3.5-5.1); Total Protein 6.1 G/DL (6.4-8.2)
[2022-07-05] MEDS ORDERED: DOXYCYCLINE HYCLATE INJ 200 MG, LIDOCAINE 1% INJ 20 ML in STERILE WATER INJ 30 ML INTRAPLEUR ONE (09:00)
[2022-07-05] MEDS: PANTOPRAZOLE 40 MG TABLET PO SCH (09:03)
[2022-07-05] MEDS: LOSARTAN 50 MG TABLET PO SCH (09:03)
[2022-07-05] MEDS: CHOLECALCIFEROL 1,000 UNIT TABLET PO SCH (09:03)
[2022-07-05] MEDS: ATORVASTATIN 80 MG TABLET PO SCH (09:03)
[2022-07-05] MEDS: INSULIN LISPRO 100 UNIT/ML SUBCUT SCH ×4 (09:04→20:35)
[2022-07-05] MEDS: BUDESONIDE/FORMOTEROL 160-4.5 INHALER 6 GM INH SCH ×2 (09:12→21:31)
[2022-07-05] MEDS: ENOXAPARIN 40 MG/0.4 ML SYRINGE SUBCUT SCH (17:26)
[2022-07-05] MEDS: ZALEPLON 5 MG CAPSULE PO PRN (23:29)
[2022-07-06] MEDS: PIPERACILLIN/TAZOBACTAM 3,375 MG in SODIUM CHLORIDE 0.9% 100 ML IV SCH ×4 (00:43→23:28)
[2022-07-06 05:04] LABS: Basophils # 0.1 10*3/uL (0.0-0.2); Basophils % 0.8 % (0.0-0.8); Eosinophils # 0.6 10*3/uL (0.0-0.87); Eosinophils % 7.9 % (0.00-10.9); Hematocrit 36.1 VOL% (42.0-52.0); Hemoglobin 11.1 GM/DL (14.0-18.0); Immature Granulocytes % 0.5 %; Immature Granulocytes Absolute 0.04 #; Lymphocytes # 1.2 10*3/uL (1.4-4.0); Lymphocytes % 15.9 % (21.2-54.2); Mean Corpuscular HGB Conc 30.7 GM/DL (32-36); Mean Corpuscular Volume 91.6 FL (87-102); Mean Platelet Volume 10.4 FL (9.6-12.0); Monocytes # 0.8 10*3/uL (0.11-0.8); Monocytes % 10.6 % (1.7-12.7); Neutrophils % 64.3 % (38.7-73.9); Platelet Count 259 T/CUMM (130-400); Red Blood Count 3.94 MC/CUMM (3.8-5.5); Red Cell Distribution Width 14.4 % (9.3-17.3); White Blood Count 7.4 T/CUMM (4-12)
[2022-07-06] MEDS: ALBUTEROL/IPRATROPIUM 3 ML NEB RESP TX SCH ×3 (07:14→20:21)
[2022-07-06] MEDS ORDERED: DOXYCYCLINE HYCLATE INJ 200 MG, LIDOCAINE 1% INJ 20 ML in STERILE WATER INJ 30 ML INTRAPLEUR ONE (08:00)
[2022-07-06] MEDS: INSULIN LISPRO 100 UNIT/ML SUBCUT SCH ×4 (08:03→20:37)
[2022-07-06] MEDS: PANTOPRAZOLE 40 MG TABLET PO SCH (08:59)
[2022-07-06] MEDS: ATORVASTATIN 80 MG TABLET PO SCH (08:59)
[2022-07-06] MEDS: LOSARTAN 50 MG TABLET PO SCH (08:59)
[2022-07-06] MEDS: CHOLECALCIFEROL 1,000 UNIT TABLET PO SCH (08:59)
[2022-07-06] MEDS: BUDESONIDE/FORMOTEROL 160-4.5 INHALER 6 GM INH SCH ×2 (09:00→21:08)
[2022-07-06] MEDS: ENOXAPARIN 40 MG/0.4 ML SYRINGE SUBCUT SCH (09:53)
[2022-07-06] MEDS ORDERED: ALBUTEROL 2.5 MG/3 ML NEB RESP TX ONE ×2 (13:11→19:28)
[2022-07-06] MEDS ORDERED: IPRATROPIUM 500 MCG/2.5 ML NEB RESP TX ONE (19:29)
[2022-07-06] MEDS: ZALEPLON 5 MG CAPSULE PO PRN (23:27)
[2022-07-07] MEDS ORDERED: ALBUTEROL 2.5 MG/3 ML NEB RESP TX ONE ×2 (00:30→19:09)
[2022-07-07] MEDS ORDERED: IPRATROPIUM 500 MCG/2.5 ML NEB RESP TX ONE ×3 (00:30→19:09)
[2022-07-07] MEDS: ALBUTEROL/IPRATROPIUM 3 ML NEB RESP TX SCH ×4 (00:44→20:36)
[2022-07-07 05:30] LABS: Basophils % 0.4 % (0.0-0.8); Eosinophils # 0.5 10*3/uL (0.0-0.87); Eosinophils % 6.4 % (0.00-10.9); Hematocrit 36.8 VOL% (42.0-52.0); Hemoglobin 11.2 GM/DL (14.0-18.0); Immature Granulocytes % 0.5 %; Immature Granulocytes Absolute 0.04 #; Lymphocytes # 0.9 10*3/uL (1.4-4.0); Lymphocytes % 11.1 % (21.2-54.2); Mean Corpuscular HGB Conc 30.4 GM/DL (32-36); Mean Corpuscular Volume 93.2 FL (87-102); Mean Platelet Volume 10.8 FL (9.6-12.0); Monocytes # 0.8 10*3/uL (0.11-0.8); Neutrophils % 71.6 % (38.7-73.9); Platelet Count 268 T/CUMM (130-400); Red Blood Count 3.95 MC/CUMM (3.8-5.5); Red Cell Distribution Width 14.3 % (9.3-17.3); White Blood Count 8.1 T/CUMM (4-12)
[2022-07-07 05:44] LABS: Calcium 8.8 MG/DL (8.5-10.1); Osmolality,Calculated 282.1 MOS/KG (273-304); Potassium 4.9 MMOL/L (3.5-5.1)
[2022-07-07] MEDS ORDERED: ALBUTEROL 1.25 MG/3 ML NEB RESP TX ONE (07:23)
[2022-07-07] MEDS: ATORVASTATIN 80 MG TABLET PO SCH (08:45)
[2022-07-07] MEDS: LOSARTAN 50 MG TABLET PO SCH (08:46)
[2022-07-07] MEDS: CHOLECALCIFEROL 1,000 UNIT TABLET PO SCH (08:46)
[2022-07-07] MEDS: PIPERACILLIN/TAZOBACTAM 3,375 MG in SODIUM CHLORIDE 0.9% 100 ML IV SCH (08:47)
[2022-07-07] MEDS: PANTOPRAZOLE 40 MG TABLET PO SCH (08:47)
[2022-07-07] MEDS: ENOXAPARIN 40 MG/0.4 ML SYRINGE SUBCUT SCH (08:47)
[2022-07-07] MEDS: BUDESONIDE/FORMOTEROL 160-4.5 INHALER 6 GM INH SCH ×2 (08:48→20:40)
[2022-07-07] MEDS: INSULIN LISPRO 100 UNIT/ML SUBCUT SCH ×3 (12:00→20:41)
[2022-07-07] MEDS: ZALEPLON 5 MG CAPSULE PO PRN (23:15)
[2022-07-08] MEDS ORDERED: ALBUTEROL 2.5 MG/3 ML NEB RESP TX ONE ×4 (00:46→18:56)
[2022-07-08] MEDS ORDERED: IPRATROPIUM 500 MCG/2.5 ML NEB RESP TX ONE ×3 (00:47→18:56)
[2022-07-08] MEDS: ALBUTEROL/IPRATROPIUM 3 ML NEB RESP TX SCH ×4 (01:54→19:48)
[2022-07-08] MEDS: INSULIN LISPRO 100 UNIT/ML SUBCUT SCH ×4 (07:30→22:27)
[2022-07-08] MEDS: PANTOPRAZOLE 40 MG TABLET PO SCH (09:00)
[2022-07-08] MEDS: ATORVASTATIN 80 MG TABLET PO SCH (09:00)
[2022-07-08] MEDS: LOSARTAN 50 MG TABLET PO SCH (09:00)
[2022-07-08] MEDS: CHOLECALCIFEROL 1,000 UNIT TABLET PO SCH (09:00)
[2022-07-08] MEDS: ENOXAPARIN 40 MG/0.4 ML SYRINGE SUBCUT SCH (09:01)
[2022-07-08] MEDS: BUDESONIDE/FORMOTEROL 160-4.5 INHALER 6 GM INH SCH ×2 (09:01→21:14)
[2022-07-08] MEDS: ZALEPLON 5 MG CAPSULE PO PRN (21:11)
[2022-07-09] MEDS: ALBUTEROL/IPRATROPIUM 3 ML NEB RESP TX SCH ×4 (02:45→19:22)
[2022-07-09 06:40] LABS: Basophils % 0.5 % (0.0-0.8); Eosinophils # 0.4 10*3/uL (0.0-0.87); Eosinophils % 6.1 % (0.00-10.9); Hematocrit 36.5 VOL% (42.0-52.0); Hemoglobin 11.2 GM/DL (14.0-18.0); Immature Granulocytes % 0.5 %; Immature Granulocytes Absolute 0.03 #; Lymphocytes # 0.9 10*3/uL (1.4-4.0); Lymphocytes % 13.2 % (21.2-54.2); Mean Corpuscular HGB Conc 30.7 GM/DL (32-36); Mean Corpuscular Volume 92.2 FL (87-102); Monocytes # 0.7 10*3/uL (0.11-0.8); Monocytes % 10.6 % (1.7-12.7); Neutrophils % 69.1 % (38.7-73.9); Platelet Count 282 T/CUMM (130-400); Red Blood Count 3.96 MC/CUMM (3.8-5.5); Red Cell Distribution Width 14.1 % (9.3-17.3); White Blood Count 6.5 T/CUMM (4-12)
[2022-07-09 07:06] LABS: Calcium 8.6 MG/DL (8.5-10.1); Osmolality,Calculated 285.8 MOS/KG (273-304); Potassium 4.2 MMOL/L (3.5-5.1)
[2022-07-09] MEDS: INSULIN LISPRO 100 UNIT/ML SUBCUT SCH ×4 (08:10→21:15)
[2022-07-09] MEDS: ATORVASTATIN 80 MG TABLET PO SCH (09:33)
[2022-07-09] MEDS: PANTOPRAZOLE 40 MG TABLET PO SCH (09:33)
[2022-07-09] MEDS: CHOLECALCIFEROL 1,000 UNIT TABLET PO SCH (09:33)
[2022-07-09] MEDS: LOSARTAN 50 MG TABLET PO SCH (09:33)
[2022-07-09] MEDS: BUDESONIDE/FORMOTEROL 160-4.5 INHALER 6 GM INH SCH ×2 (09:34→21:15)
[2022-07-09] MEDS: ENOXAPARIN 40 MG/0.4 ML SYRINGE SUBCUT SCH (12:08)
[2022-07-09] MEDS ORDERED: ZALEPLON 5 MG CAPSULE PO PRN (21:01)
[2022-07-10] MEDS: ALBUTEROL/IPRATROPIUM 3 ML NEB RESP TX SCH ×3 (02:23→13:56)
[2022-07-10 05:19] LABS: Basophils % 0.6 % (0.0-0.8); Eosinophils # 0.5 10*3/uL (0.0-0.87); Eosinophils % 7.5 % (0.00-10.9); Hemoglobin 11.4 GM/DL (14.0-18.0); Immature Granulocytes % 0.6 %; Immature Granulocytes Absolute 0.04 #; Lymphocytes # 1.2 10*3/uL (1.4-4.0); Lymphocytes % 16.3 % (21.2-54.2); Mean Corpuscular Volume 93.6 FL (87-102); Mean Platelet Volume 10.3 FL (9.6-12.0); Monocytes # 0.9 10*3/uL (0.11-0.8); Monocytes % 12.3 % (1.7-12.7); Neutrophils % 62.7 % (38.7-73.9); Platelet Count 270 T/CUMM (130-400); Red Blood Count 4.06 MC/CUMM (3.8-5.5); Red Cell Distribution Width 14.1 % (9.3-17.3); White Blood Count 7.2 T/CUMM (4-12)
[2022-07-10 05:55] LABS: Osmolality,Calculated 290.6 MOS/KG (273-304); Potassium 4.5 MMOL/L (3.5-5.1)
[2022-07-10] MEDS: INSULIN LISPRO 100 UNIT/ML SUBCUT SCH ×2 (08:51→12:05)
[2022-07-10] MEDS: ENOXAPARIN 40 MG/0.4 ML SYRINGE SUBCUT SCH (08:55)
[2022-07-10] MEDS: ATORVASTATIN 80 MG TABLET PO SCH (08:55)
[2022-07-10] MEDS: LOSARTAN 50 MG TABLET PO SCH (08:56)
[2022-07-10] MEDS: BUDESONIDE/FORMOTEROL 160-4.5 INHALER 6 GM INH SCH (08:56)
[2022-07-10] MEDS: PANTOPRAZOLE 40 MG TABLET PO SCH (08:56)
[2022-07-10] MEDS: CHOLECALCIFEROL 1,000 UNIT TABLET PO SCH (08:56)
[2022-07-10 11:58] VITALS: BP 123/83
== END 2022-07-10 14:54 | disposition home or self-care (01) | DRG 181 ==
LOC: N.ED 21:38 → N.EDINP 23:51 → SUATTDRO 23:51 → N.3E 07-02 02:48
PROVIDERS: ADMIT Internal Medicine; ATTEND Internal Medicine

== ENCOUNTER 2022-08-13 22:45 | Inpatient (IN) ==
[2022-08-13 23:23] LABS: Basophils % 0.1 % (0.0-0.8); Eosinophils % 0.1 % (0.00-10.9); Hematocrit 33.6 VOL% (42.0-52.0); Hemoglobin 10.7 GM/DL (14.0-18.0); Immature Granulocytes % 0.5 %; Immature Granulocytes Absolute 0.07 #; Lymphocytes # 0.7 10*3/uL (1.4-4.0); Lymphocytes % 4.7 % (21.2-54.2); Mean Corpuscular HGB Conc 31.8 GM/DL (32-36); Mean Corpuscular Volume 86.4 FL (87-102); Monocytes # 0.8 10*3/uL (0.11-0.8); Monocytes % 5.8 % (1.7-12.7); Neutrophils % 88.8 % (38.7-73.9); Platelet Count 345 T/CUMM (130-400); Red Blood Count 3.89 MC/CUMM (3.8-5.5); Red Cell Distribution Width 14.1 % (9.3-17.3); White Blood Count 13.9 T/CUMM (4-12)
[2022-08-13 23:39] LABS: Albumin 3.2 G/DL (3.4-5.0); Bilirubin,Total 0.4 MG/DL (0.20-1.00); Calcium 8.8 MG/DL (8.5-10.1); Osmolality,Calculated 275.1 MOS/KG (273-304); PT Patient Result 10.6 SECS (10.1-12.1); Partial Thromboplastin Time 31.5 SECS (23.7-32.9); Potassium 5.1 MMOL/L (3.5-5.1); Total Protein 6.6 G/DL (6.4-8.2)
[2022-08-13 23:54] LABS: Lymphocytes 7 % (20-55); Platelet Estimate Adequate; Total Cells Counted 100
[2022-08-14] MEDS ORDERED: AZITHROMYCIN INJ 500 MG in SODIUM CHLORIDE 0.9% 250 ML IV STA (00:21)
[2022-08-14] MEDS ORDERED: cefTRIAXone 1,000 MG in SODIUM CHLORIDE 0.9% 100 ML IV STA (00:21)
[2022-08-14] MEDS ORDERED: MORPHINE 2 MG/1 ML SYRINGE IV STA (00:44)
[2022-08-14] MEDS ORDERED: ONDANSETRON 4 MG/2 ML VIAL IV STA (00:44)
[2022-08-14] MEDS ORDERED: MORPHINE 2 MG/1 ML SYRINGE ONE (00:45)
[2022-08-14] MEDS ORDERED: ONDANSETRON 4 MG/2 ML VIAL ONE (00:45)
[2022-08-14] MEDS ORDERED: hydrALAZINE 20 MG/1 ML VIAL IV PRN (02:03)
[2022-08-14] MEDS ORDERED: ACETAMINOPHEN 325 MG TABLET PO PRN (02:03)
[2022-08-14] MEDS ORDERED: MORPHINE 2 MG/1 ML SYRINGE IV PRN (02:03)
[2022-08-14] MEDS ORDERED: ONDANSETRON 4 MG/2 ML VIAL IV PRN (02:03)
[2022-08-14 03:42] LABS: Basophils % 0.1 % (0.0-0.8); Eosinophils % 0.3 % (0.00-10.9); Hematocrit 31.8 VOL% (42.0-52.0); Immature Granulocytes % 0.4 %; Immature Granulocytes Absolute 0.05 #; Lymphocytes % 8.7 % (21.2-54.2); Mean Corpuscular HGB Conc 31.4 GM/DL (32-36); Mean Corpuscular Volume 86.9 FL (87-102); Mean Platelet Volume 10.3 FL (9.6-12.0); Monocytes # 1.2 10*3/uL (0.11-0.8); Monocytes % 10.2 % (1.7-12.7); Neutrophils % 80.3 % (38.7-73.9); Platelet Count 341 T/CUMM (130-400); Red Blood Count 3.66 MC/CUMM (3.8-5.5); Red Cell Distribution Width 14.2 % (9.3-17.3); White Blood Count 11.7 T/CUMM (4-12)
[2022-08-14 04:13] LABS: Calcium 8.1 MG/DL (8.5-10.1); Osmolality,Calculated 274.8 MOS/KG (273-304); Potassium 4.5 MMOL/L (3.5-5.1)
[2022-08-14] MEDS: ALBUTEROL/IPRATROPIUM 3 ML NEB RESP TX SCH ×3 (08:03→19:33)
[2022-08-14] MEDS: PANTOPRAZOLE 40 MG TABLET PO SCH (10:18)
[2022-08-14] MEDS ORDERED: DEXTROSE 10% 250 ML BAG IV PRN (14:34)
[2022-08-14] MEDS ORDERED: GLUCAGON 1 MG VIAL IM PRN (14:34)
[2022-08-14] MEDS: MELATONIN 3 MG TABLET PO PRN (21:56)
[2022-08-14] MEDS: cefTRIAXone 1,000 MG in SODIUM CHLORIDE 0.9% 100 ML IV SCH (23:46)
[2022-08-14] MEDS: AZITHROMYCIN INJ 500 MG in SODIUM CHLORIDE 0.9% 250 ML IV SCH (23:49)
[2022-08-15] MEDS: ALBUTEROL/IPRATROPIUM 3 ML NEB RESP TX SCH ×4 (01:24→19:20)
[2022-08-15 05:17] LABS: Basophils # 0.1 10*3/uL (0.0-0.2); Basophils % 0.5 % (0.0-0.8); Eosinophils # 0.2 10*3/uL (0.0-0.87); Eosinophils % 1.9 % (0.00-10.9); Hematocrit 32.4 VOL% (42.0-52.0); Hemoglobin 9.8 GM/DL (14.0-18.0); Immature Granulocytes % 0.5 %; Immature Granulocytes Absolute 0.05 #; Lymphocytes # 1.1 10*3/uL (1.4-4.0); Lymphocytes % 11.1 % (21.2-54.2); Mean Corpuscular HGB Conc 30.2 GM/DL (32-36); Mean Corpuscular Volume 88.8 FL (87-102); Mean Platelet Volume 10.7 FL (9.6-12.0); Monocytes # 1.2 10*3/uL (0.11-0.8); Monocytes % 12.4 % (1.7-12.7); Neutrophils % 73.6 % (38.7-73.9); Platelet Count 322 T/CUMM (130-400); Red Blood Count 3.65 MC/CUMM (3.8-5.5); Red Cell Distribution Width 14.1 % (9.3-17.3); White Blood Count 9.5 T/CUMM (4-12)
[2022-08-15 05:43] LABS: Calcium 8.8 MG/DL (8.5-10.1); Osmolality,Calculated 269.1 MOS/KG (273-304); Potassium 4.9 MMOL/L (3.5-5.1)
[2022-08-15] MEDS: PANTOPRAZOLE 40 MG TABLET PO SCH (08:59)
[2022-08-15] MEDS: MELATONIN 3 MG TABLET PO PRN (21:08)
[2022-08-15] MEDS: cefTRIAXone 1,000 MG in SODIUM CHLORIDE 0.9% 100 ML IV SCH (23:28)
[2022-08-15] MEDS: AZITHROMYCIN INJ 500 MG in SODIUM CHLORIDE 0.9% 250 ML IV SCH (23:32)
[2022-08-16] MEDS: ALBUTEROL/IPRATROPIUM 3 ML NEB RESP TX SCH ×3 (01:05→12:10)
[2022-08-16] MEDS: PANTOPRAZOLE 40 MG TABLET PO SCH (08:30)
[2022-08-16 11:50] VITALS: BP 165/77
== END 2022-08-16 14:00 | disposition home health service (06) | DRG 181 ==
LOC: N.ED 22:45 → N.EDINP 08-14 02:03 → N.TELES 08-14 09:00
PROVIDERS: ADMIT Emergency Medicine; ATTEND Emergency Medicine

== ENCOUNTER 2022-08-28 18:11 | Observation (INO) ==
[2022-08-28] MEDS ORDERED: MORPHINE 2 MG/1 ML SYRINGE IV STA (19:32)
[2022-08-28] MEDS ORDERED: methylPREDNISolone SOD SUC 125 MG/2 ML VIAL IV STA (19:32)
[2022-08-28] MEDS ORDERED: ONDANSETRON 4 MG/2 ML VIAL IV STA (19:32)
[2022-08-28] MEDS ORDERED: FUROSEMIDE 100 MG/10 ML VIAL IV STA (19:32)
[2022-08-28] MEDS ORDERED: ALBUTEROL/IPRATROPIUM 3 ML NEB RESP TX STA (19:32)
[2022-08-28 19:41] LABS: Basophils % 0.3 % (0.0-0.8); Eosinophils # 0.2 10*3/uL (0.0-0.87); Eosinophils % 1.6 % (0.00-10.9); Hematocrit 33.9 VOL% (42.0-52.0); Hemoglobin 10.6 GM/DL (14.0-18.0); Immature Granulocytes % 0.6 %; Immature Granulocytes Absolute 0.06 #; Lymphocytes # 1.3 10*3/uL (1.4-4.0); Lymphocytes % 12.1 % (21.2-54.2); Mean Corpuscular HGB Conc 31.3 GM/DL (32-36); Mean Corpuscular Volume 84.3 FL (87-102); Mean Platelet Volume 10.6 FL (9.6-12.0); Monocytes # 1.1 10*3/uL (0.11-0.8); Monocytes % 9.7 % (1.7-12.7); Neutrophils % 75.7 % (38.7-73.9); Platelet Count 497 T/CUMM (130-400); Red Blood Count 4.02 MC/CUMM (3.8-5.5); Red Cell Distribution Width 14.2 % (9.3-17.3); White Blood Count 10.9 T/CUMM (4-12)
[2022-08-28 19:48] LABS: PT Patient Result 11.1 SECS (10.1-12.1); Partial Thromboplastin Time 38.7 SECS (23.7-32.9)
[2022-08-28 19:58] LABS: Bilirubin,Total 0.4 MG/DL (0.20-1.00); Calcium 9.4 MG/DL (8.5-10.1); Osmolality,Calculated 273.8 MOS/KG (273-304); Potassium 4.3 MMOL/L (3.5-5.1); Total Protein 7.6 G/DL (6.4-8.2)
[2022-08-28] MEDS ORDERED: ALBUTEROL NEB SOLN 5 MG/ML 20 ML/BOTTLE CONT NEB SCH (20:00)
[2022-08-28] MEDS ORDERED: ALBUTEROL 2.5 MG/3 ML NEB RESP TX ONE (20:02)
[2022-08-28 20:22] LABS: Arterial Base Excess iSTAT 2 MMOL/L (-2.5-2.5); Arterial Bicarbonate iSTAT 26.5 MMOL/L (20-26); Arterial O2 Saturation iSTAT 97 % (95-100); Arterial PCO2 iSTAT 41 MM HG (35-48); Arterial PO2 iSTAT 85 MM HG (80-95); Arterial Total CO2 iSTAT 28 MMO/L (23-27); Arterial pH iSTAT 7.417 (7.35-7.45)
[2022-08-28] MEDS ORDERED: ACETAMINOPHEN 325 MG TABLET PO PRN (20:42)
[2022-08-28] MEDS ORDERED: hydrALAZINE 20 MG/1 ML VIAL IV PRN (20:42)
[2022-08-28] MEDS ORDERED: ONDANSETRON 4 MG/2 ML VIAL IV PRN (20:42)
[2022-08-29] MEDS: MORPHINE 2 MG/1 ML SYRINGE IV PRN ×2 (00:59→05:06)
[2022-08-29] MEDS: ALBUTEROL/IPRATROPIUM 3 ML NEB RESP TX SCH ×4 (01:26→18:50)
[2022-08-29 05:42] LABS: Hematocrit 31.8 VOL% (42.0-52.0); Hemoglobin 9.9 GM/DL (14.0-18.0); Immature Granulocytes % 0.5 %; Immature Granulocytes Absolute 0.04 #; Lymphocytes # 0.3 10*3/uL (1.4-4.0); Lymphocytes % 4.1 % (21.2-54.2); Mean Corpuscular HGB Conc 31.1 GM/DL (32-36); Mean Corpuscular Volume 84.4 FL (87-102); Mean Platelet Volume 10.3 FL (9.6-12.0); Monocytes # 0.2 10*3/uL (0.11-0.8); Monocytes % 1.9 % (1.7-12.7); Neutrophils % 93.5 % (38.7-73.9); Platelet Count 408 T/CUMM (130-400); Red Blood Count 3.77 MC/CUMM (3.8-5.5); Red Cell Distribution Width 14.1 % (9.3-17.3); White Blood Count 7.8 T/CUMM (4-12)
[2022-08-29 06:10] LABS: Lymphocytes 1 % (20-55); Total Cells Counted 100
[2022-08-29 06:11] LABS: Hypochromia Slight
[2022-08-29 06:12] LABS: Microcytosis 1+; Ovalocytes Slight; Platelet Estimate Increased
[2022-08-29] MEDS: INSULIN LISPRO 100 UNIT/ML SUBCUT SCH ×4 (09:21→20:32)
[2022-08-29] MEDS: MULTIVITAMIN (CENTRUM) TABLET PO SCH (10:07)
[2022-08-29] MEDS: ZINC GLUCONATE 50 MG TABLET PO SCH (10:07)
[2022-08-29] MEDS: PANTOPRAZOLE 40 MG TABLET PO SCH (10:07)
[2022-08-29] MEDS: FERROUS SULFATE 325 MG TABLET PO SCH (10:07)
[2022-08-29] MEDS: FUROSEMIDE 40 MG TABLET PO SCH ×2 (10:07→20:31)
[2022-08-29] MEDS: ATORVASTATIN 80 MG TABLET PO SCH (10:07)
[2022-08-29] MEDS: CHOLECALCIFEROL 1,000 UNIT TABLET PO SCH (10:07)
[2022-08-29] MEDS: PRIMIDONE 50 MG TABLET PO SCH ×2 (10:08→20:30)
[2022-08-29] MEDS: LOSARTAN 50 MG TABLET PO SCH (10:08)
[2022-08-29] MEDS: CYANOCOBALAMIN 500 MCG TABLET PO SCH (10:09)
[2022-08-29] MEDS: BUDESONIDE/FORMOTEROL 160-4.5 INHALER 6 GM INH SCH ×2 (10:13→20:30)
[2022-08-29] MEDS: TIOTROPIUM BROMIDE INH SCH (10:24)
[2022-08-29] MEDS: ACTUATION MIST INH SCH (10:24)
[2022-08-30] MEDS: ALBUTEROL/IPRATROPIUM 3 ML NEB RESP TX SCH ×2 (06:55)
[2022-08-30] MEDS: FERROUS SULFATE 325 MG TABLET PO SCH (08:50)
[2022-08-30] MEDS: PANTOPRAZOLE 40 MG TABLET PO SCH (08:50)
[2022-08-30] MEDS: FUROSEMIDE 40 MG TABLET PO SCH (08:50)
[2022-08-30] MEDS: ATORVASTATIN 80 MG TABLET PO SCH (08:50)
[2022-08-30] MEDS: ZINC GLUCONATE 50 MG TABLET PO SCH (08:50)
[2022-08-30] MEDS: LOSARTAN 50 MG TABLET PO SCH (08:50)
[2022-08-30] MEDS: MULTIVITAMIN (CENTRUM) TABLET PO SCH (08:50)
[2022-08-30] MEDS: PRIMIDONE 50 MG TABLET PO SCH (08:50)
[2022-08-30] MEDS: CYANOCOBALAMIN 500 MCG TABLET PO SCH (08:50)
[2022-08-30] MEDS: CHOLECALCIFEROL 1,000 UNIT TABLET PO SCH (08:51)
[2022-08-30] MEDS: ACTUATION MIST INH SCH (08:53)
[2022-08-30] MEDS: TIOTROPIUM BROMIDE INH SCH (08:53)
[2022-08-30] MEDS: BUDESONIDE/FORMOTEROL 160-4.5 INHALER 6 GM INH SCH (08:53)
[2022-08-30] MEDS: INSULIN LISPRO 100 UNIT/ML SUBCUT SCH (08:54)
[2022-08-30 09:09] VITALS: BP 147/76
== END 2022-08-30 11:15 | disposition home or self-care (01) ==
LOC: N.ED 18:11 → N.EDINP 18:11 → SUATTDRO 20:42 → N.2W 08-29 02:31
PROVIDERS: ADMIT Internal Medicine; ATTEND Family Medicine